=== PATIENT | female | born 1980 | race Caucasian/White ===

== ENCOUNTER 2019-04-25 16:29 | Emergency (ER) | payer MEDICAID ==
[~2019-04-25] VITALS: Ht 142.2 cm; Wt 57.4 kg
[2019-04-25 20:06] VITALS: BP 130/79
== END 2019-04-25 20:07 | disposition home or self-care (01) ==
LOC: ER 16:29
DX: R51 Headache (principal)
CPT/HCPCS: 99283

== ENCOUNTER 2021-03-22 15:17 | Emergency (ER) | payer MEDICAID ==
[~2021-03-22] VITALS: Ht 152.4 cm; Wt 59.0 kg
[2021-03-22 15:23] VITALS: BP 169/91
[2021-03-22 15:56] LABS: BASOPHILS % 0.6 % (0.0-2.0); EOSINOPHILS % 1.3 % (0.0-5.0); LYMPHOCYTES % 22.5 % (20.0-50.0); MEAN CORPUSCULAR HEMOGLOBIN 30.7 pg (28.0-32.0); MEAN CORPUSCULAR VOLUME 92.5 fL (81.0-99.0); MONOCYTES % 7.9 % (2.0-8.0); NEUTROPHILS % 67.7 % (40.0-76.0); PLATELET 266 x1000/uL (130-400); RED BLOOD CELL COUNT 4.22 mill/uL (4.2-5.4); RED CELL DISTRIBUTION WIDTH 12.8 % (11.6-14.6)
[2021-03-22 15:59] LABS: CHLORIDE 105 mEq/L (98-107)
== END 2021-03-22 17:32 | disposition home or self-care (01) ==
LOC: ER 15:17
DX: R07.89 Other chest pain (principal); Z98.890 Other specified postprocedural states; Z98.51 Tubal ligation status
CPT/HCPCS: 36415; 71045; 80053; 83880; 84484; 85025; 93005; 99285

== ENCOUNTER 2022-06-09 09:32 | Emergency (ER) | payer MEDICAID ==
[~2022-06-09] VITALS: Ht 149.9 cm; Wt 56.0 kg
[2022-06-09] MEDS ORDERED: IBUPROFEN 400MG TABLET PO ONE (10:15)
[2022-06-09] MEDS ORDERED: MECLIZINE 25MG TABLET PO ONE (10:15)
[2022-06-09] MEDS ORDERED: ACETAMINOPHEN 325MG TABLET PO ONE (10:15)
[2022-06-09 10:37] LABS: CLARITY URINE CLOUDY (CLEAR); COLOR URINE YELLOW (YELLOW); KETONES URINE TRACE (NEGATIVE); LEUKOCYTE ESTERASE URINE 3+ (NEGATIVE); NITRITE URINE NEGATIVE (NEGATIVE); OCCULT BLOOD URINE NEGATIVE (NEGATIVE); PROTEIN URINE NEGATIVE (NEGATIVE); SPECIFIC GRAVITY URINE 1.024 (1.005-1.030)
[2022-06-09 10:59] VITALS: BP 136/99
[2022-06-09] MEDS ORDERED: ACET-2708 MT (12:10)
[2022-06-09] MEDS ORDERED: MECL-159 MT (12:10)
== END 2022-06-09 12:23 | disposition home or self-care (01) ==
LOC: ER 10:48
DX: R51.9 Headache, unspecified (principal); G89.29 Other chronic pain; R42 Dizziness and giddiness
CPT/HCPCS: 81003; 81025; 87086; 93005; 99284; J8597

== ENCOUNTER 2023-12-30 11:15 | Emergency (ER) | payer MEDICAID ==
[~2023-12-30] VITALS: Ht 149.9 cm; Wt 63.0 kg
[~2023-12-30 11:15] MED LIST: ACET-2708 MT; MECL-299 MT
[2023-12-30 11:27] VITALS: O2SAT 99
[2023-12-30] MEDS: SODIUM CHLORIDE 0.9% 1,000 ML IV ONE (12:45)
[2023-12-30] MEDS ORDERED: ONDANSETRON HCL 4MG/2ML INJ IV ONE (12:45)
[2023-12-30] MEDS ORDERED: KETOROLAC 30MG/ML VIAL IV ONE (13:45)
[2023-12-30 14:32] LABS: BASOPHILS % 0.7 % (0.0-2.0); EOSINOPHILS % 0.5 % (0.0-5.0); HEMATOCRIT. 42.5 % (36.0-48.0); HEMOGLOBIN. 14.5 g/dL (12.0-16.0); LYMPHOCYTES % 24.3 % (20.0-50.0); MEAN CORPUSCULAR HEMOGLOBIN 31.9 pg (28.0-32.0); MEAN CORPUSCULAR HGB CONC 34.2 g/dL (31.0-37.0); MEAN CORPUSCULAR VOLUME 93.3 fL (81.0-99.0); MEAN PLATELET VOLUME 8.4 fl (7.4-10.4); MONOCYTES % 4.9 % (2.0-8.0); NEUTROPHILS % 69.6 % (40.0-76.0); PLATELET 249 x1000/uL (130-400); RED BLOOD CELL COUNT 4.55 mill/uL (4.2-5.4); RED CELL DISTRIBUTION WIDTH 13.2 % (11.6-14.6); WHITE BLOOD COUNT 5.4 x1000/uL (4.5-11.0)
[2023-12-30 14:36] LABS: PROTHROMBIN TIME 10.8 sec (9.6-11.0)
[2023-12-30 14:37] LABS: CHLORIDE 104 mEq/L (98-107); SODIUM 139 mEq/L (136-145)
[2023-12-30 14:38] LABS: CALCIUM 9.8 mg/dL (8.7-10.4); CARBON DIOXIDE 28 mEq/L (21-32)
[2023-12-30 14:43] LABS: CREATININE 0.7 mg/dL (0.6-1.0); GLUCOSE 89 mg/dL (70-105); UREA NITROGEN BLOOD 9 mg/dL (9-23)
[2023-12-30] MEDS: KETOROLAC 30MG/ML VIAL IV NR (14:43)
[2023-12-30] MEDS: ONDANSETRON HCL 4MG/2ML INJ IV NR (14:44)
[2023-12-30 14:45] LABS: ALANINE AMINOTRANSFERASE 16 IU/L (10-49); ALBUMIN 4.6 g/dL (3.2-4.8); ASPARTATE AMINOTRANSFERASE 20 IU/L (<34); BILIRUBIN DIRECT 0.1 mg/dL (<=3.0)
[2023-12-30 14:46] LABS: BILIRUBIN TOTAL 0.5 mg/dL (0.1-1.0); PROTEIN TOTAL 7.6 g/dL (6.0-8.3)
[2023-12-30 14:57] LABS: HCG SCREEN NEGATIVE
[2023-12-30 17:28] LABS: CLARITY URINE CLEAR (CLEAR); COLOR URINE YELLOW (YELLOW); GLUCOSE URINE NEGATIVE (NEGATIVE); KETONES URINE NEGATIVE (NEGATIVE); LEUKOCYTE ESTERASE URINE NEGATIVE (NEGATIVE); NITRITE URINE NEGATIVE (NEGATIVE); OCCULT BLOOD URINE NEGATIVE (NEGATIVE); PH URINE 6.5 (4.5-8.0); PROTEIN URINE NEGATIVE (NEGATIVE); SPECIFIC GRAVITY URINE 1.006 (1.005-1.030); UROBILINOGEN URINE 0.2 E.U./dL (0.2-1.0)
[2023-12-30] MEDS ORDERED: IBUP-2029 MT (18:02)
[2023-12-30 19:18] VITALS: BP 148/83; PULSE 72; RESP 16; TEMP 37.05852; O2SAT 99
== END 2023-12-30 19:18 | disposition home or self-care (01) ==
LOC: ER 11:27
DX: R42 Dizziness and giddiness (principal); M54.30 Sciatica, unspecified side; Z98.51 Tubal ligation status
CPT/HCPCS: 80076; 80048; 81003; 84703; 85025; 85610; 36415; 96361; 96374; 96375; 99284; J2405; J7030; Z7610; J1885